=== PATIENT | male | born 1965 | race Caucasian/White ===

== ENCOUNTER 2020-01-07 13:31 | Emergency (ER) | payer OTHER, SELFPAY ==
[2020-01-07 13:38] VITALS: BP 129/90; PULSE 100; RESP 20; TEMP 36.7; O2SAT 98
--- NOTE | 2020-01-07 14:19 | ED.EAR ---
HPI - Ear Problem General Chief complaint: Ear Stated complaint: Ear pain Time Seen by Provider: 01/07/20 14:12 Source: patient and RN notes reviewed Mode of arrival: ambulatory Limitations: no limitations History of Present Illness HPI Narrative: Patient presents today complaining of 3 to 4-day history of left ear pain. Reports chronic cerumen impactions. He has been using swimmer's ear and Debrox drops without relief of symptoms. He has been swimming frequently as well. Denies decreased hearing or drainage. MD Complaint: ear pain Related Data Home Medications Medication Instructions Recorded Confirmed alprazolam 1 mg PO TID PRN 01/07/20 01/07/20 carvedilol 25 mg PO BID 01/07/20 01/07/20 folic acid 1 mg PO DAILY 01/07/20 01/07/20 hydrocodone-acetaminophen 1 tablet PO Q8H PRN 01/07/20 01/07/20 methotrexate sodium 2.5 mg PO WEEKLY 01/07/20 01/07/20 Allergies Allergy/AdvReac Type Severity Reaction Status Date / Time No Known Allergies Allergy Verified 01/07/20 14:04 Review of Systems Review of Systems: Narrative: CONSTITUTIONAL: Denies body aches, fever, chills, or sweats. EYES: Denies visual changes, redness, or discharge. ENT: Denies rhinorrhea, congestion, sore throat.+ Left ear pain CARDIOVASCULAR: Denies chest pain, palpitations, or edema. RESPIRATORY: Denies cough or dyspnea. GASTROINTESTINAL: Denies abdominal pain, nausea, vomiting, or diarrhea. GENITOURINARY: Denies dysuria or hematuria. SKIN: Denies rash, itching, or wounds. MUSCULOSKELETAL: Denies back pain, joint pain, or myalgia. NEUROLOGIC: Denies headache, numbness, tingling, or weakness. PSYCH: Denies depression or anxiety. PMFSH Comments At time of signature, I have reviewed and agree with nursing past medical, surgical, social and family history unless otherwise noted. Please see nursing chart for further information. There is no relevant family history pertinent to the presenting complaint Exam Narrative: Exam Narrative: GENERAL: Well-appearing, well-nourished, and in no acute distress. HEAD: Normocephalic, atraumatic. EYES: EOMI. No redness or drainage. Conjunctivae normal. ENT: Mucous membranes pink and moist. Nares clear. No rhinorrhea. TMs normal bilaterally. Left ear: Movement and tragal tenderness. Mild swelling of the ear canal with erythema. NECK: Normal AROM. Supple. No lymphadenopathy. CHEST: No respiratory distress. EXTREMITIES: Normal range of motion. No edema. SKIN: Warm, dry, no rash. Capillary refill normal. Normal skin turgor. NEURO: No focal deficits. Alert and oriented x3. Gait steady. PSYCH: Normal affect. No signs of depression or anxiety. Course Vital Signs Vital signs: Vital Signs Temperature 98.1 F 01/07/20 13:38 Pulse Rate 100 01/07/20 13:38 Respiratory Rate 20 01/07/20 13:38 Blood Pressure 129/90 01/07/20 13:38 Pulse Oximetry 98 01/07/20 13:38 Temperature 98.1 F 01/07/20 13:38 Pulse Rate 100 01/07/20 13:38 Respiratory Rate 01/07/20 13:38 Blood Pressure 129/90 01/07/20 13:38 Pulse Oximetry 98 01/07/20 13:38 Reviewed. Pt has been instructed to follow up with his PCP regarding his elevated blood pressure today. Medical Decision Making Differential Diagnosis Differential Diagnosis: Otitis media, otitis externa, ruptured TM, serous otitis, eustachian tube dysfunction, cerumen impaction Vital Signs Vital Signs: Vital Signs Temperature 98.1 F 01/07/20 13:38 Pulse Rate 100 01/07/20 13:38 Respiratory Rate 01/07/20 13:38 Blood Pressure 129/90 01/07/20 13:38 Pulse Oximetry 98 01/07/20 13:38 Temperature 98.1 F 01/07/20 13:38 Pulse Rate 100 01/07/20 13:38 Respiratory Rate 01/07/20 13:38 Blood Pressure 129/90 01/07/20 13:38 Pulse Oximetry 98 01/07/20 13:38 Critical Care Time Critical Care Time Critical Care Time: No Discharge Plan Discharge Clinical Impression: Otitis externa Qualifiers: Otitis externa ty
== END 2020-01-07 14:25 | disposition home or self-care (01) ==
PROVIDERS: Emergency Provider Nurse Practitioner
DX: H60.502 Unspecified acute noninfective otitis externa, left ear (principal)
CPT/HCPCS: 99213; G0463